=== PATIENT | female | born 1950 | race Caucasian/White ===

== ENCOUNTER → 2017-04-21 | Outpatient (CLI) | payer BC | LOC: BMCIMAGING 09:40 | PROVIDERS: ATTEND Family Medicine | DX: Z12.31 Encounter for screening mammogram for malignant neoplasm of breast (principal) | CPT/HCPCS: G0202 ==

== ENCOUNTER → 2017-05-02 | Outpatient (CLI) | payer BC | LOC: BMCIMAGING 09:35 | PROVIDERS: ATTEND Family Medicine | DX: Z12.39 Encounter for other screening for malignant neoplasm of breast (principal); R92.8 Other abnormal and inconclusive findings on diagnostic imaging of breast | CPT/HCPCS: G0206 ==

== ENCOUNTER → 2017-05-15 | Outpatient (CLI) | payer BC | LOC: BMCIMAGING 11:03 | PROVIDERS: ATTEND Family Medicine | DX: Z13.820 Encounter for screening for osteoporosis (principal); M81.0 Age-related osteoporosis without current pathological fracture ==

== ENCOUNTER 2017-08-19 10:21 | Emergency (ER) | payer BC ==
[2017-08-19 10:31] VITALS: O2SAT 100
--- NOTE | 2017-08-19 10:56 | CPEKG ---
Heart Rate: 75 RR Interval: 800 P-R Interval: 152 QRSD Interval: 98 QT Interval: 432 QTC Interval: 483 P [place]: 71 QRS [place]: -36 T Wave [place]: -72 EKG Severity - OTHERWISE NORMAL ECG - EKG Impression: SINUS RHYTHM EKG Impression: LEFT AXIS DEVIATION Electronically Signed By: Alvaro Rizzo 19-Aug-2017 11:03:32
[2017-08-19 11:05] LABS: PLATELET COUNT 247 10^3/uL (150-400)
--- NOTE | 2017-08-19 11:05 | EDPHY ---
H & P Time Seen by Provider: 08/19/17 11:05 HPI/ROS: CHIEF COMPLAINT: Dizziness HISTORY OF PRESENT ILLNESS: Patient actually denies any medical complaints on arrival. She admits to severe anxiety and some problems with her memory but says she feels fine right now and does not have any symptoms. Remainder of history is from her . He says that she has had congestion and head cold for the last 3 days and has been tired and was seen at urgent care about a week ago. He describes her being intermittently dizzy at home or she appears like she is a bit wobbly on her feet sometimes will hold onto the wall. Her symptoms suddenly occur and then they sometimes are completely gone. She will occasionally have them when she is not walking. Patient denies currently any headache or visual symptoms or neck pain. She has not had any lightheadedness or fainting. Denies any earache or tinnitus. REVIEW OF SYSTEMS: Eye: no change in vision ENT: no sore throat Cardiac: no chest pain or syncope Pulmonary: no cough or SOB Abdomen: no vomiting, diarrhea, abdominal pain Musculoskeletal: no back pain Skin: no rash Neuro: HPI, no headache now Constitutional: no fever : no urinary symptoms A comprehensive 10 point review of systems is otherwise negative aside from elements mentioned in the history of present illness. PAST MEDICAL HISTORY: Migraines hypothyroid and anxiety on Prozac, trouble with short and long-term memory Social history: here with her General Appearance: Alert and conversant, cooperative. Eyes: No scleral icterus. ENT, Mouth: Normal mucous membranes. Normal tympanic membranes bilaterally Respiratory: Normal respiratory effort, breath sounds equal, lungs are clear to auscultation. Cardiovascular: Regular rate and rhythm. Gastrointestinal: Abdomen is soft and non tender. Neurological: Alert, face symmetric, normal motor and sensory in extremities. Normal [id number] bilaterally, Romberg negative, ambulatory without ataxia. Toes downgoing bilaterally. Speech fluent. Short-term memory is poor. Skin: Warm and dry, no rashes. Musculoskeletal: No peripheral edema. Psychiatric: Not agitated. Emergency Department course/MDM: Patient likely has vertigo. She has a normal exam in the emergency department including cerebellar testing. She is currently asymptomatic. Her episodic dizziness with normal neurologic examination with suggest peripheral vertigo much more likely than central. Symptomatic care appears appropriate at this time. Smoking Status: Never smoked Constitutional: Initial Vital Signs Temperature (C) 36.6 C 08/19/17 10:28 Heart Rate 83 08/19/17 10:28 Respiratory Rate 16 08/19/17 10:28 Blood Pressure 129/75 H 08/19/17 10:28 O2 Sat (%) 100 08/19/17 10:28 O2 Delivery Mode Room Air Allergies/Adverse Reactions: No Known Allergies Allergy (Unverified 08/19/17 10:27) Home Medications: Medication Instructions Recorded Prozac 10 MG (*) 08/19/17 Synthroid 08/19/17 Medical Decision Making - Diagnostics EKG Interpretation: 12-lead EKG interpreted by me; official reading is in trace master. My interpretation is sinus rhythm with left axis rate 75 otherwise normal. Differential Diagnosis: Differential diagnosis considered for dizziness including but not limited to peripheral and central causes of vertigo, orthostatic causes including dehydration, and blood loss. - Data Points Laboratory Results: Laboratory Results 08/19/17 10:50 08/19/17 10:50 08/19/17 08/19/17 10:50 10:50 WBC 5.46 10^3/uL 10^3/uL (3.80-9.50) RBC 4.65 10^6/uL 10^6/uL (4.18-5.33) Hgb 15.6 g/dL g/dL (12.6-16.3) Hct 44.2 % % (38.0-47.0) MCV 95.1 fL fL (81.5-99.8) MCH 33.5 pg pg (27.9-34.1) MCHC 35.3 g/dL g/dL (32.4-36.7) RDW 11.5 % % (11.5-15.2) Plt Count 247 10^3/uL 10^3/uL (150-400) MPV 10.7 fL fL (8.7-11.7) Neut % (Auto) 72.6 % % (39.3-74.2) Lymph % (Auto) 19.4 % % (15.0-45.0) Martin % (Auto) 5.5 % % (4.5-13.0) Eos % (Auto) 0.5 % L % (0.6-7.6) Baso % (Auto) 1.1 % % (0.3-1.7) Nucleat RBC Rel Count 0.0 % % (0.0-0.2) Absolute Neuts (auto) 3.96 10^3/uL 10^3/uL (1.70-6.50) Absolute Lymphs (auto) 1.06 10^3/uL 10^3/uL (1.00-3.00) Absolute Monos (auto) 0.30 10^3/uL 10^3/uL (0.30-0.80) Absolute Eos (auto) 0.03 10^3/uL 10^3/uL (0.03-0.40) Absolute Basos (auto) 0.06 10^3/uL 10^3/uL (0.02-0.10) Absolute Nucleated RBC 0.00 10^3/uL 10^3/uL (0-0.01) Immature Gran % 0.9 % % (0.0-1.1) Immature Gran # 0.05 10^3/uL 10^3/uL (0.00-0.10) Sodium 141 mEq/L mEq/L (135-145) Potassium 3.4 mEq/L L mEq/L (3.5-5.2) Chloride 107 mEq/L mEq/L (97-110) Carbon Dioxide 21 mEq/l L mEq/l (22-31) Anion Gap 13 mEq/L mEq/L (8-16) BUN 14 mg/dL mg/dL (7-23) Creatinine 0.8 mg/dL mg/dL (0.6-1.0) Estimated GFR > 60 Glucose 176 mg/dL H mg/dL (70-100) Calcium 9.8 mg/dL mg/dL (8.5-10.4) Troponin I < 0.012 ng/mL ng/mL (0.000-0.034) TSH 2.990 uIU/mL uIU/mL (0.465-4.680) Departure - Departure Disposition: Home, Routine, Self-Care Clinical Impression: Vertigo Condition: Good Instructions: Vertigo (ED) Additional Instructions: call [phone] this afternoon for TSH result Referrals: Latha Winn MD [Primary Care Provider] - As per Instructions
[2017-08-19 11:45] VITALS: BP 129/65; PULSE 72; RESP 18; TEMP 98.6
== END 2017-08-19 11:54 | disposition home or self-care (01) ==
DX: R42 Dizziness and giddiness (principal)

== ENCOUNTER → 2018-05-30 | Outpatient (CLI) | payer BC ==
--- NOTE | 2018-05-30 13:57 | CPEEG ---
DATE OF STUDY: 05/30/2018 INTERPRETATION: Normal EEG during wakefulness and drowsiness. There were no potentially epileptogen ic abnormalities present during the awake and drowsy recordings. REPORT: This EEG contains 10 Hz alpha activity to the posterior head regions. There was no abnormal activation at rest, during photic stimulation or hyperventilation. The patient intermittently becam e drowsy during the study. There was no abnormal activation during drowsiness or during times of rob usal. If clinically indicated, a repeat 4-hour video EEG study could be ordered to capture sustained sleep. Copy requested to: Dr. Sd Drummond /[id number]/MODL
== END ==
LOC: FCPNEURO 07:49
PROVIDERS: ATTEND Psychiatry & Neurology Neurology
DX: G30.9 Alzheimer's disease, unspecified (principal); F02.80 Dementia in other diseases classified elsewhere, unspecified severity, without behavioral disturbance, psychotic disturbance, mood disturbance, and anxiety; G25.3 Myoclonus; G43.909 Migraine, unspecified, not intractable, without status migrainosus

== ENCOUNTER → 2018-11-22 | Outpatient (CLI) | payer BC | LOC: FIMAGING 10:39 ==